=== PATIENT | female | born 1945 | race Caucasian/White ===

== ENCOUNTER 2017-12-05 11:21 | Emergency (ER) | payer MEDICARE ==
[~2017-12-05] VITALS: Ht 162.6 cm; Wt 81.7 kg
[~2017-12-05 11:21] MED LIST: ALPR1; ALPR1 PO; ATOR10; CEPH500 PO; CIPR250 PO; ESTR1; ESTR1 PO; FAMO20 PO; HYDACE5 PO; LEVSOD100; LEVSOD100 PO; LORA1; OXYACE5T PO; OXYACE7.5T; OXYB5 PO; PHENA100 PO; PRED20 PO; TOLT2
[2017-12-05] MEDS ORDERED: LMX 515 GM TOP (11:56)
== END 2017-12-05 12:40 | disposition home or self-care (01) ==
LOC: ER 11:21
DX: G89.18 Other acute postprocedural pain (principal); N64.4 Mastodynia; Z88.6 Allergy status to analgesic agent; Z88.5 Allergy status to narcotic agent; Z79.899 Other long term (current) drug therapy; Z85.3 Personal history of malignant neoplasm of breast
CPT/HCPCS: 99282

== ENCOUNTER 2017-12-08 06:40 | Emergency (ER) | payer MEDICARE ==
[~2017-12-08] VITALS: Ht 162.6 cm; Wt 83.9 kg
[~2017-12-08 06:40] MED LIST changes: +LMX 515 GM TOP
== END 2017-12-08 07:34 | disposition home or self-care (01) ==
LOC: ER 06:40
DX: Z48.817 Encounter for surgical aftercare following surgery on the skin and subcutaneous tissue (principal); Z88.5 Allergy status to narcotic agent; Z88.6 Allergy status to analgesic agent; Z88.1 Allergy status to other antibiotic agents; Z79.899 Other long term (current) drug therapy; Z79.52 Long term (current) use of systemic steroids
CPT/HCPCS: 99282

== ENCOUNTER → 2018-07-03 | Outpatient (CLI) | payer MEDICARE ==
[2018-07-03 13:12] LABS: Appearance, Urine Clear (Clear); Bilirubin, Urine Neg (Neg); Blood, Urine Neg (Neg); Color, Urine Yellow (P-Yellow); Glucose Qualitative, Urine Neg (Neg); Ketones, Urine Neg (Neg); Leukocyte Esterase, Urine Neg (Neg); Nitrite, Urine Neg (Neg); Protein, Urine Neg (Neg); Urobilinogen, Urine NORM (Normal)
== END | disposition home or self-care (01) ==
LOC: LAB 12:42 → LAB SHORT 12:42
PROVIDERS: Nurse Practitioner Obstetrics & Gynecology
DX: N39.0 Urinary tract infection, site not specified (principal)
CPT/HCPCS: 81003

== ENCOUNTER → 2018-07-05 | Outpatient (CLI) | payer MEDICARE | LOC: LAB SHORT 19:20 → LAB 19:20 | DX: N39.0 Urinary tract infection, site not specified (principal) | CPT/HCPCS: 87077; 87086; 87186 ==

== ENCOUNTER → 2019-05-07 | Outpatient (CLI) | payer MEDICARE | END | disposition home or self-care (01) | LOC: LAB EV 09:55 → LAB SHORT 09:55 | DX: N39.0 Urinary tract infection, site not specified (principal) | CPT/HCPCS: 87077; 87086; 87186 ==

== ENCOUNTER → 2022-12-29 | Outpatient (CLI) | payer OTHER ==
[~2022-12-29] MED LIST changes: +Ketoconazole120 ML; +LISI5 PO; +Prilosec10 M1 PO; +Simvastatin10 MG PO; +TRIM100 PO
== END ==
LOC: PLD 08:26 → LAB SHORT 08:26
DX: L60.2 Onychogryphosis (principal); B35.1 Tinea unguium
CPT/HCPCS: 88305; 88312

== ENCOUNTER → 2022-12-30 | Outpatient (CLI) | payer OTHER | END | disposition home or self-care (01) | LOC: LAB 12:00 → LAB SHORT 12:00 | DX: L60.2 Onychogryphosis (principal); B35.1 Tinea unguium | CPT/HCPCS: 87220 ==

== ENCOUNTER 2023-02-01 13:19 | Day surgery (SDC) | payer OTHER ==
[~2023-02-01] VITALS: Ht 162.6 cm; Wt 83.6 kg
[2023-02-01] MEDS ORDERED: SOLI5 (13:56)
--- NOTE | 2023-02-01 14:02 | NUR ---
02/01/23 1402 Pam Becker IN AT 1353 WILFREDO IN AT 1354
== END 2023-02-01 15:03 | disposition home or self-care (01) ==
LOC: ORSCSDS 13:19
PROVIDERS: Ophthalmology
PROC: 08DK3ZZ Extraction of Left Lens, Percutaneous Approach (ICD-10-PCS; principal; 2023-02-01 14:30)
DX: H25.12 Age-related nuclear cataract, left eye (principal); F40.00 Agoraphobia, unspecified; I12.9 Hypertensive chronic kidney disease with stage 1 through stage 4 chronic kidney disease, or unspecified chronic kidney disease; N18.30 Chronic kidney disease, stage 3 unspecified; K21.9 Gastro-esophageal reflux disease without esophagitis; F41.9 Anxiety disorder, unspecified; F43.10 Post-traumatic stress disorder, unspecified; E03.9 Hypothyroidism, unspecified; E78.5 Hyperlipidemia, unspecified; Z87.891 Personal history of nicotine dependence; Z79.899 Other long term (current) drug therapy
CPT/HCPCS: J2001; J2250; J3010; J3301; J7040; V2632

== ENCOUNTER 2023-02-08 13:24 | Day surgery (SDC) | payer OTHER ==
[~2023-02-08] VITALS: Ht 162.6 cm; Wt 84.7 kg
[~2023-02-08 13:24] MED LIST changes: +SOLI5
== END 2023-02-08 15:08 | disposition home or self-care (01) ==
LOC: ORSCSDS 13:24
PROVIDERS: Ophthalmology
PROC: 08RJ3JZ Replacement of Right Lens with Synthetic Substitute, Percutaneous Approach (ICD-10-PCS; principal; 2023-02-08 14:30)
DX: H25.11 Age-related nuclear cataract, right eye (principal); Z96.1 Presence of intraocular lens; E03.9 Hypothyroidism, unspecified; I12.9 Hypertensive chronic kidney disease with stage 1 through stage 4 chronic kidney disease, or unspecified chronic kidney disease; N18.30 Chronic kidney disease, stage 3 unspecified; F41.9 Anxiety disorder, unspecified; K21.9 Gastro-esophageal reflux disease without esophagitis; Z79.899 Other long term (current) drug therapy
CPT/HCPCS: J2001; J2250; J3010; J3301; J7040; V2632

== ENCOUNTER → 2023-04-15 | Outpatient (CLI) | payer OTHER ==
[2023-04-15 19:34] LABS: BASOPHILS ABSOLUTE AUTO 0.12 K/mm3 (0.00-0.23); BASOPHILS PERCENT AUTO 1 % (0-2); EOSINOPHILS ABSOLUTE AUTO 1.02 K/mm3 (0.00-0.68); EOSINOPHILS PERCENT AUTO 9 % (0-6); Hematocrit 42.3 % (33.0-51.0); IMMATURE GRAN ABSOLUTE AUTO 0.04 K/mm3 (0.00-0.10); IMMATURE GRAN PERCENT AUTO 0 % (0-1); LYMPHOCYTES ABSOLUTE AUTO 3.86 K/mm3 (0.84-5.20); LYMPHOCYTES PERCENT AUTO 32 % (21-46); MONOCYTES ABSOLUTE AUTO 0.71 K/mm3 (0.16-1.47); MONOCYTES PERCENT AUTO 6 % (4-13); Mean Corpuscular HGB 31.5 pg (26.0-34.0); Mean Corpuscular HGB Conc 33.1 g/dL (31.5-36.5); Mean Corpuscular Volume 95 fL (80-100); Mean Platelet Volume 9.9 fL (9.1-12.4); NEUTROPHILS ABSOLUTE AUTO 6.17 K/mm3 (1.96-9.15); NEUTROPHILS PERCENT AUTO 52 % (41-73); Platelet Count 375 K/mm3 (150-400); RDW Coefficient Variation 13.8 % (11.7-14.2); RDW Standard Deviation 48.7 fL (35.1-46.3); Red Blood Cell Count 4.44 M/mm3 (3.80-5.20); White Blood Cell Count 11.92 K/mm3 (4.00-11.30)
[2023-04-15 19:54] LABS: Albumin, Blood 3.8 g/dL (3.4-5.0); Albumin/Globulin Ratio 1.2 (0.8-1.8); Bilirubin, Total 0.3 mg/dL (0.1-1.0); Bun/Creatinine Ratio 12.1 (12.0-20.0); Calcium, Blood 8.9 mg/dL (8.5-10.1); Creatinine, Blood 1.16 mg/dL (0.40-1.00); Globulin, Blood 3.3 g/dL (2.2-4.0); Potassium, Blood 4.3 mmol/L (3.5-5.5); Total Protein, Blood 7.1 g/dL (6.4-8.2)
[2023-04-15 20:10] LABS: International Normalized Ratio 0.97; Prothrombin Time Results 10.2 Sec (9.7-11.5)
== END | disposition home or self-care (01) ==
LOC: LAB 17:29 → LAB SHORT 17:29
PROVIDERS: Physician Assistant
DX: H02.846 Edema of left eye, unspecified eyelid (principal); R58 Hemorrhage, not elsewhere classified
CPT/HCPCS: 80053; 85025; 85610

== ENCOUNTER → 2024-06-01 | Outpatient (CLI) | payer OTHER | LOC: LAB 16:02 → LAB SHORT 16:02 | DX: R23.4 Changes in skin texture (principal) | CPT/HCPCS: 87220 ==

== ENCOUNTER → 2024-07-14 | Outpatient (CLI) | payer OTHER | END | disposition home or self-care (01) | LOC: LAB 18:50 → LAB SHORT 18:50 | DX: R30.0 Dysuria (principal) | CPT/HCPCS: 87086 ==

== ENCOUNTER → 2025-03-30 | Outpatient (CLI) | payer OTHER | LOC: LAB SHORT 15:40 → LAB 15:40 | DX: N39.0 Urinary tract infection, site not specified (principal) | CPT/HCPCS: 87086 ==

== ENCOUNTER → 2025-09-20 | Outpatient (CLI) | payer OTHER ==
[2025-09-20 18:53] LABS: Bilirubin, Urine Neg (Neg); Color, Urine Yellow (P-Yellow); Glucose Qualitative, Urine Neg (Neg); Ketones, Urine 1+ (Neg); Leukocyte Esterase, Urine 3+ (Neg); Protein, Urine 2+ (Neg); Specific Gravity, Urine 1.020 (1.003-1.022); Urobilinogen, Urine NORM (Normal)
[2025-09-20 19:29] LABS: White Blood Cells, Urine 50-100 /hpf (0-5)
[2025-09-20 19:31] LABS: Red Blood Cells, Urine 0-2 /hpf (0-2)
== END | disposition home or self-care (01) ==
LOC: LAB 18:38 → LAB SHORT 18:38
PROVIDERS: Obstetrics & Gynecology
DX: R30.0 Dysuria (principal)
CPT/HCPCS: 81001; 87086